=== PATIENT | female | born 1960 | race Two or more races ===

== ENCOUNTER 2019-08-30 09:44 | Inpatient (IN) | payer OTHER ==
[~2019-08-30] VITALS: Ht 154.9 cm; Wt 68.0 kg
[2019-09-02] MEDS ORDERED: GABAPENT PO (10:08)
[2019-09-09] MEDS ORDERED: NEURONTIN300 MG PO (20:14)
== END 2019-09-10 18:57 | disposition home or self-care (01) | DRG 331 ==
LOC: O/R 09-06 08:30 → SURH 09-06 08:34 → O/R 09-06 09:45 → SURH 09-06 19:26
PROVIDERS: ADMIT Colon & Rectal Surgery; ATTEND Colon & Rectal Surgery
PROC: 07TB4ZZ Resection of Mesenteric Lymphatic, Percutaneous Endoscopic Approach (ICD-10-PCS; 2019-09-06)
PROC: 0DTN4ZZ Resection of Sigmoid Colon, Percutaneous Endoscopic Approach (ICD-10-PCS; principal; 2019-09-06 09:45)
DX: C18.7 Malignant neoplasm of sigmoid colon (principal); R59.0 Localized enlarged lymph nodes; D64.9 Anemia, unspecified

== ENCOUNTER 2020-09-09 08:46 | Day surgery (SDC) | payer OTHER ==
[~2020-09-09 08:46] MED LIST: GABAPENT PO; NEURONTIN300 MG PO
== END 2020-09-09 12:10 | disposition home or self-care (01) ==
LOC: AMB-ENDOS 08:46
PROVIDERS: ATTEND Colon & Rectal Surgery
DX: D12.3 Benign neoplasm of transverse colon (principal); D12.4 Benign neoplasm of descending colon; K64.8 Other hemorrhoids; Z12.11 Encounter for screening for malignant neoplasm of colon